=== PATIENT | female | born 1950 | race Caucasian/White ===

== ENCOUNTER → 2022-03-01 | Outpatient (REF) | payer MEDICAID ==
[2022-03-01 18:22] LABS: APPEARANCE, URINE MANUAL CLEAR (CLEAR); BILIRUBIN, URINE MANUAL NEGATIVE (NEGATIVE); BLOOD URINE MANUAL NEGATIVE (NEGATIVE); COLOR, URINE MANUAL YELLOW (YELLOW); GLUCOSE, URINE (UA) MANUAL NEGATIVE (NEGATIVE); KETONE, URINE MANUAL NEGATIVE (NEGATIVE); LEUKOCYTE ESTERASE, URINE MAN NEGATIVE (NEGATIVE); NITRITE, URINE MANUAL NEGATIVE (NEGATIVE); PROTEIN, URINE MANUAL NEGATIVE (NEGATIVE); UROBILINOGEN, URINE MANUAL NORMAL (NORMAL)
== END ==
LOC: M SMT 17:26
PROVIDERS: ATTEND Physician Assistant
DX: N39.41 Urge incontinence (principal)

== ENCOUNTER → 2023-11-08 | Outpatient (CLI) | payer MEDICARE, MEDICAID | LOC: M CARPUL 10:36 | PROVIDERS: ATTEND Nurse Practitioner Family | DX: J44.9 Chronic obstructive pulmonary disease, unspecified (principal) ==

== ENCOUNTER 2024-07-03 10:28 | Inpatient (IN) | payer MEDICARE, MEDICAID ==
[~2024-07-03] VITALS: Ht 162.6 cm; Wt 132.3 kg
[2024-07-03 11:06] LABS: BASO # 0.1 10^3/uL (0.0-0.2); EOS # 0.2 10^3/uL (0.0-0.5); HEMATOCRIT 28.5 % (36.0-47.0); HEMOGLOBIN 8.4 g/dl (12.0-15.5); LYMPH # 0.9 10^3/uL (1.5-5.0); LYMPH % 12.2 % (24.0-44.0); MEAN CORPUSCULAR HEMOGLOBIN 29.5 pg (27.0-33.0); MEAN CORPUSCULAR HGB CONC 29.5 g/dl (32.0-36.5); MONO # 0.8 10^3/uL (0.0-0.8); MONO % 10.5 % (2.0-8.0); NEUTROPHILS # 5.6 10^3/uL (1.5-8.5); NEUTROPHILS % 72.9 % (36.0-66.0); PLATELET COUNT, AUTOMATED 184 10^3/uL (150-450); RED BLOOD COUNT 2.85 10^6/uL (4.00-5.40); WHITE BLOOD COUNT 7.7 10^3/uL (4.0-10.0)
[2024-07-03 11:22] LABS: INR 1.02; PROTHROMBIN TIME 13.7 SECONDS (12.5-14.5)
[2024-07-03] MEDS: methylPREDNISolone 125MG 2ML VIAL IV ONE (11:26)
[2024-07-03 11:33] LABS: ALBUMIN 2.9 G/DL (3.2-5.2); ALKALINE PHOSPHATASE 320 U/L (35-104); ALT/SGPT 24 U/L (7.0-40); AST/SGOT 47 U/L (<34); BILIRUBIN,DIRECT 0.3 MG/DL (<0.4); BILIRUBIN,TOTAL 0.8 MG/DL (0.3-1.2); BLOOD UREA NITROGEN 17 MG/DL (9-23); CALCIUM LEVEL 7.9 MG/DL (8.3-10.6); CARBON DIOXIDE LEVEL 31 MMOL/L (20-31); CHLORIDE LEVEL 107 MMOL/L (98-107); CREATININE FOR GFR 0.67 MG/DL (0.55-1.30); GLOMERULAR FILTRATION RATE > 60.0 (>39); GLUCOSE, FASTING 97 MG/DL (74-106); POTASSIUM SERUM 4.2 MMOL/L (3.5-5.1); SODIUM LEVEL 146 MMOL/L (136-145); TOTAL PROTEIN 6.4 G/DL (5.7-8.2)
[2024-07-03 11:37] LABS: THYROID STIMULATING HORMONE 9.691 uIU/ML (0.55-4.78); THYROXINE (T4) 7.1 UG/DL (4.5-10.9)
[2024-07-03] MEDS: IPRATROPIUM 0.5MG/ALBUTEROL 2.5MG INH SOL UD 3ML (DUONEB) NEB PRN (12:07)
[2024-07-03] MEDS ORDERED: ISOVUE-370 76% 100ML VIAL As Ordered ONE (12:17)
[2024-07-03] MEDS: KETOROLAC 30 MG/ML 1ML VIAL IV ONE (13:10)
[2024-07-03 13:50] LABS: VENOUS BASE EXCESS 1.4 (-2.0-2.0); VENOUS HCO3 28.7 MMOL/L (23.0-27.0); VENOUS O2 SATURATION 91.3 % (60.0-80.0); VENOUS PARTIAL PRESSURE CO2 60.3 mmHg (38.0-50.0); VENOUS PARTIAL PRESSURE O2 66.1 mmHg (30.0-50.0); VENOUS PH 7.295 UNITS (7.330-7.430); VENOUS STANDARD HCO3 25.6 MMOL/L; VENOUS TOTAL CO2 30.5 MMOL/L (24.0-28.0)
[2024-07-03] MEDS ORDERED: LORA-1041 PO (14:18)
[2024-07-03] MEDS ORDERED: TRAM50TA2 PO (14:18)
[2024-07-03] MEDS ORDERED: SENN-52 PO (14:18)
[2024-07-03] MEDS ORDERED: MONT10TA97 PO (14:18)
[2024-07-03] MEDS ORDERED: LEVO200T4 PO (14:18)
[2024-07-03] MEDS ORDERED: IRBE300T25 PO (14:18)
[2024-07-03] MEDS ORDERED: CYMB60CA4 PO (14:18)
[2024-07-03] MEDS ORDERED: PANT-23 PO (14:18)
[2024-07-03] MEDS ORDERED: LYRI75CA PO (14:18)
[2024-07-03] MEDS ORDERED: ATOR1TAB19 PO (14:18)
[2024-07-03] MEDS ORDERED: FERR325T3 PO (14:18)
[2024-07-03] MEDS ORDERED: HOME MED LIST COMPLETE! XX SCH (14:20)
[2024-07-03] MEDS ORDERED: traMADol 50 MG TAB PO PRN (16:55)
[2024-07-03 17:59] LABS: IRON (FE) 46 UG/DL (50-170); PERCENT SATURATION 12.6 % (13.2-45.0); PHOSPHORUS LEVEL 1.9 MG/DL (2.4-5.1); TOTAL IRON BINDING CAPACITY 365 UG/DL (250-425)
[2024-07-03 18:01] LABS: FERRITIN 32.3 NG/ML (7.3-270.7)
[2024-07-03 18:02] LABS: FOLATE 6.42 NG/ML (>5.4); VITAMIN B12 LEVEL 238 PG/ML (211-911)
[2024-07-03] MEDS: FUROSEMIDE 40MG/4ML VIAL IV SCH (18:02)
[2024-07-03] MEDS: IPRATROPIUM 0.5MG/ALBUTEROL 2.5MG INH SOL UD 3ML (DUONEB) NEB SCH (20:42)
[2024-07-03] MEDS: SENOKOT S TAB PO SCH (21:44)
[2024-07-03] MEDS: PREGABALIN 75 MG CAP(LYRICA) PO SCH (21:45)
[2024-07-03 22:22] LABS: BLOOD UREA NITROGEN 17 MG/DL (9-23); CARBON DIOXIDE LEVEL 31 MMOL/L (20-31); CHLORIDE LEVEL 107 MMOL/L (98-107); CREATININE FOR GFR 0.88 MG/DL (0.55-1.30); GLOMERULAR FILTRATION RATE > 60.0 (>39); GLUCOSE, FASTING 123 MG/DL (74-106); POTASSIUM SERUM 4.3 MMOL/L (3.5-5.1); SODIUM LEVEL 146 MMOL/L (136-145)
[2024-07-04] MEDS: LEVOTHYROXINE 100MCG TABLET (0.1MG) PO SCH (05:52)
[2024-07-04] MEDS: traMADol 50 MG TAB PO PRN (05:56)
[2024-07-04 07:25] LABS: BASO % 0.2 % (0.0-1.0); HEMATOCRIT 27.1 % (36.0-47.0); HEMOGLOBIN 8.3 g/dl (12.0-15.5); LYMPH # 0.6 10^3/uL (1.5-5.0); LYMPH % 5.5 % (24.0-44.0); MEAN CORPUSCULAR HEMOGLOBIN 30.6 pg (27.0-33.0); MEAN CORPUSCULAR HGB CONC 30.6 g/dl (32.0-36.5); MONO # 1.2 10^3/uL (0.0-0.8); NEUTROPHILS % 82.9 % (36.0-66.0); PLATELET COUNT, AUTOMATED 207 10^3/uL (150-450); RED BLOOD COUNT 2.71 10^6/uL (4.00-5.40); WHITE BLOOD COUNT 10.8 10^3/uL (4.0-10.0)
[2024-07-04 07:55] LABS: BLOOD UREA NITROGEN 20 MG/DL (9-23); CALCIUM LEVEL 8.5 MG/DL (8.3-10.6); CARBON DIOXIDE LEVEL 31 MMOL/L (20-31); CHLORIDE LEVEL 105 MMOL/L (98-107); CREATININE FOR GFR 0.79 MG/DL (0.55-1.30); GLOMERULAR FILTRATION RATE > 60.0 (>39); GLUCOSE, FASTING 100 MG/DL (74-106); MAGNESIUM LEVEL 1.9 MG/DL (1.8-2.4); POTASSIUM SERUM 4.4 MMOL/L (3.5-5.1); SODIUM LEVEL 143 MMOL/L (136-145)
[2024-07-04] MEDS: ENOXAPARIN 40MG/0.4ML SYRINGE (J1650 PER 10MG) SC SCH (08:15)
[2024-07-04] MEDS: PANTOPRAZOLE 40MG TAB (PROTONIX) PO SCH (08:15)
[2024-07-04] MEDS: FERROUS SULFATE 325MG TAB PO SCH (08:16)
[2024-07-04] MEDS: DULoxetine 30MG CAPSULE (CYMBALTA) PO SCH (08:16)
[2024-07-04] MEDS: MONTELUKAST 10 MG TAB PO SCH (08:17)
[2024-07-04] MEDS: ATORVASTATIN 10 MG TAB PO SCH (08:18)
[2024-07-04] MEDS: LORATADINE 10 MG TAB PO SCH (08:21)
[2024-07-04] MEDS: IRBESARTAN 150MG TAB PO SCH (10:24)
[2024-07-04 11:00] VITALS: BP 106/96; TEMP 97.5; O2SAT 94
[2024-07-04] MEDS ORDERED: PILL CUTTER 1 EACH XX PRN (11:10)
[2024-07-04 11:16] LABS: PHOSPHORUS LEVEL 2.2 MG/DL (2.4-5.1)
[2024-07-04] MEDS: MAGNESIUM GLUCONATE 500 MG TAB PO SCH (12:08)
[2024-07-04] MEDS: POTASSIUM CHLORIDE 10MEQ SR TABLET PO SCH (12:09)
[2024-07-04 14:15] VITALS: BP 112/57; TEMP 98.1; O2SAT 94
[2024-07-04] MEDS: FERRIC CARBOXYMALTOSE INJ 750 MG, VIAL MATE ADAPTER 1 EACH in NS 100 ML IV ONE (14:55)
[2024-07-04 19:16] LABS: BLOOD UREA NITROGEN 24 MG/DL (9-23); CALCIUM LEVEL 8.1 MG/DL (8.3-10.6); CARBON DIOXIDE LEVEL 30 MMOL/L (20-31); CHLORIDE LEVEL 103 MMOL/L (98-107); CREATININE FOR GFR 0.91 MG/DL (0.55-1.30); GLOMERULAR FILTRATION RATE > 60.0 (>39); GLUCOSE, FASTING 140 MG/DL (74-106); MAGNESIUM LEVEL 1.8 MG/DL (1.8-2.4); POTASSIUM SERUM 4.5 MMOL/L (3.5-5.1); SODIUM LEVEL 141 MMOL/L (136-145)
[2024-07-04 19:42] VITALS: BP 150/71; TEMP 97.9; O2SAT 93
[2024-07-04 19:50] VITALS: O2SAT 94
[2024-07-05] MEDS: MAG SULF 1GM/100ML (MAG RUN) 1 GM in IV 1 EA IV SCH (00:37)
[2024-07-05 03:58] VITALS: BP 147/72; TEMP 97.7; O2SAT 92
[2024-07-05 04:02] VITALS: BP 147/72; TEMP 97.7; O2SAT 95
[2024-07-05 05:38] LABS: BASO % 0.3 % (0.0-1.0); EOS # 0.2 10^3/uL (0.0-0.5); EOS % 1.9 % (0.0-3.0); HEMATOCRIT 27.5 % (36.0-47.0); HEMOGLOBIN 8.3 g/dl (12.0-15.5); LYMPH # 1.5 10^3/uL (1.5-5.0); LYMPH % 13.1 % (24.0-44.0); MEAN CORPUSCULAR HEMOGLOBIN 30.3 pg (27.0-33.0); MEAN CORPUSCULAR HGB CONC 30.2 g/dl (32.0-36.5); MEAN CORPUSCULAR VOLUME 100.4 fl (80.0-96.0); MONO # 1.3 10^3/uL (0.0-0.8); MONO % 11.8 % (2.0-8.0); NEUTROPHILS # 8.1 10^3/uL (1.5-8.5); NEUTROPHILS % 72.3 % (36.0-66.0); PLATELET COUNT, AUTOMATED 211 10^3/uL (150-450); RED BLOOD COUNT 2.74 10^6/uL (4.00-5.40); WHITE BLOOD COUNT 11.2 10^3/uL (4.0-10.0)
[2024-07-05 06:08] LABS: BLOOD UREA NITROGEN 23 MG/DL (9-23); CALCIUM LEVEL 8.3 MG/DL (8.3-10.6); CARBON DIOXIDE LEVEL 34 MMOL/L (20-31); CHLORIDE LEVEL 101 MMOL/L (98-107); GLOMERULAR FILTRATION RATE > 60.0 (>39); GLUCOSE, FASTING 102 MG/DL (74-106); MAGNESIUM LEVEL 2.3 MG/DL (1.8-2.4); POTASSIUM SERUM 4.1 MMOL/L (3.5-5.1); SODIUM LEVEL 139 MMOL/L (136-145)
[2024-07-05] MEDS: predniSONE 20 MG TAB PO SCH (08:44)
[2024-07-05] MEDS: NYSTATIN 100,000 UNITS/GM TOPICAL PWD 15GM TOP SCH (09:00)
[2024-07-05] MEDS ORDERED: TRAM50TA2 PO (11:39)
[2024-07-05] MEDS ORDERED: IPRA0.00 NEB (11:39)
[2024-07-05] MEDS ORDERED: NYST10006 TOP (11:39)
[2024-07-05] MEDS ORDERED: METH40VIAL IV (11:39)
[2024-07-05] MEDS ORDERED: POTA-136 PO (11:39)
[2024-07-05] MEDS ORDERED: FURO80VL IV (11:39)
[2024-07-05] MEDS: methylPREDNISolone 40MG 1ML VIAL IV SCH (11:54)
[2024-07-05 14:00] VITALS: BP 176/88; TEMP 97.3; O2SAT 91
[2024-07-05] MEDS: FUROSEMIDE 40MG/4ML VIAL IV ONE (16:20)
[2024-07-05 18:51] LABS: BLOOD UREA NITROGEN 22 MG/DL (9-23); CARBON DIOXIDE LEVEL 32 MMOL/L (20-31); CHLORIDE LEVEL 101 MMOL/L (98-107); CREATININE FOR GFR 0.81 MG/DL (0.55-1.30); GLOMERULAR FILTRATION RATE > 60.0 (>39); GLUCOSE, FASTING 221 MG/DL (74-106); MAGNESIUM LEVEL 1.9 MG/DL (1.8-2.4); POTASSIUM SERUM 4.3 MMOL/L (3.5-5.1); SODIUM LEVEL 140 MMOL/L (136-145)
[2024-07-05 19:38] VITALS: BP 163/63; TEMP 97.9; O2SAT 95
[2024-07-05] MEDS: MIRALAX *UNIT DOSE* 17GM PACKET PO SCH (21:00)
[2024-07-05] MEDS: METAMUCIL (PSYLLIUM) PACKET PO SCH (21:00)
[2024-07-06 03:49] VITALS: BP 111/65; TEMP 97.3; O2SAT 94
[2024-07-06 05:46] LABS: BASO % 0.1 % (0.0-1.0); HEMATOCRIT 26.7 % (36.0-47.0); HEMOGLOBIN 8.3 g/dl (12.0-15.5); LYMPH # 0.6 10^3/uL (1.5-5.0); LYMPH % 5.8 % (24.0-44.0); MEAN CORPUSCULAR HEMOGLOBIN 30.6 pg (27.0-33.0); MEAN CORPUSCULAR HGB CONC 31.1 g/dl (32.0-36.5); MEAN CORPUSCULAR VOLUME 98.5 fl (80.0-96.0); MONO # 0.9 10^3/uL (0.0-0.8); MONO % 8.2 % (2.0-8.0); NEUTROPHILS # 9.2 10^3/uL (1.5-8.5); NEUTROPHILS % 84.9 % (36.0-66.0); PLATELET COUNT, AUTOMATED 219 10^3/uL (150-450); RED BLOOD COUNT 2.71 10^6/uL (4.00-5.40); WHITE BLOOD COUNT 10.8 10^3/uL (4.0-10.0)
[2024-07-06 06:13] LABS: BLOOD UREA NITROGEN 20 MG/DL (9-23); CALCIUM LEVEL 8.4 MG/DL (8.3-10.6); CARBON DIOXIDE LEVEL 34 MMOL/L (20-31); CHLORIDE LEVEL 102 MMOL/L (98-107); GLOMERULAR FILTRATION RATE > 60.0 (>39); GLUCOSE, FASTING 118 MG/DL (74-106); MAGNESIUM LEVEL 2.1 MG/DL (1.8-2.4); POTASSIUM SERUM 4.3 MMOL/L (3.5-5.1); SODIUM LEVEL 143 MMOL/L (136-145)
[2024-07-06] MEDS: BISACODYL 10MG SUPP PR ONE (10:40)
[2024-07-06 12:15] VITALS: BP 127/70; TEMP 98.1; O2SAT 90
[2024-07-07 04:00] VITALS: BP 155/86; TEMP 97.5; O2SAT 96
[2024-07-07] MEDS: predniSONE 20 MG TAB PO SCH (08:40)
[2024-07-07] MEDS: TORSEMIDE 20 MG TAB PO SCH (08:41)
[2024-07-08 05:32] VITALS: BP 130/66; TEMP 97.7; O2SAT 97
[2024-07-08] MEDS: FERROUS SULFATE 325MG TAB PO SCH (14:55)
[2024-07-08] MEDS: ACETAMINOPHEN 325 MG TAB PO PRN (14:55)
[2024-07-09 03:29] VITALS: BP 128/66; TEMP 97.7; O2SAT 97
[2024-07-09 07:39] VITALS: BP 152/77
[2024-07-10 04:26] VITALS: BP 106/77; TEMP 97.5; O2SAT 96
[2024-07-10 04:37] VITALS: O2SAT 96
[2024-07-10 04:38] VITALS: O2SAT 97
[2024-07-11 04:00] VITALS: BP 128/66; TEMP 97.5; O2SAT 96
[2024-07-11 09:12] VITALS: BP 101/73
[2024-07-12 04:00] VITALS: BP 138/71; TEMP 97.7; O2SAT 97
[2024-07-12 08:50] VITALS: BP 105/56
[2024-07-12] MEDS ORDERED: TORS20TA2 PO (11:15)
[2024-08-06] MEDS ORDERED: SECUKINUMAB SQ SCH (09:00)
== END 2024-07-12 14:08 | DRG 291 ==
LOC: EDBD 10:28 → M ED 10:28 → M ED INP 16:17 → M MS5PR 07-04 11:00 → M MSPAV 07-04 13:55
PROVIDERS: ADMIT Student in an Organized Health Care Education/Training Program; ATTEND Internal Medicine
PROC: B246ZZZ Ultrasonography of Right and Left Heart (ICD-10-PCS; principal; 2024-07-04)
DX: I11.0 Hypertensive heart disease with heart failure (principal); I50.33 Acute on chronic diastolic (congestive) heart failure; E87.20 Acidosis, unspecified; J96.11 Chronic respiratory failure with hypoxia; J44.9 Chronic obstructive pulmonary disease, unspecified; E78.5 Hyperlipidemia, unspecified; F32.A Depression, unspecified; K21.9 Gastro-esophageal reflux disease without esophagitis; E03.9 Hypothyroidism, unspecified; L40.9 Psoriasis, unspecified; D50.9 Iron deficiency anemia, unspecified; M79.7 Fibromyalgia; K59.00 Constipation, unspecified; N39.41 Urge incontinence; F17.210 Nicotine dependence, cigarettes, uncomplicated; S42.202D Unspecified fracture of upper end of left humerus, subsequent encounter for fracture with routine healing; Z79.890 Hormone replacement therapy; Z79.899 Other long term (current) drug therapy; Z91.041 Radiographic dye allergy status; Z88.5 Allergy status to narcotic agent; Z88.8 Allergy status to other drugs, medicaments and biological substances; Z99.81 Dependence on supplemental oxygen

== ENCOUNTER → 2024-08-01 | Outpatient (CLI) | payer MEDICARE, MEDICAID ==
[~2024-08-01] MED LIST: ATOR1TAB19 PO; CYMB60CA4 PO; FERR325T3 PO; FURO80VL IV; IPRA0.00 NEB; IRBE300T25 PO; LEVO200T4 PO; LORA-1041 PO; LYRI75CA PO; METH40VIAL IV; MONT10TA97 PO; NYST10006 TOP; PANT-23 PO; POTA-136 PO; SENN-52 PO; TORS20TA2 PO; TRAM50TA2 PO
== END ==
LOC: M SOG 07:55
PROVIDERS: ATTEND Orthopaedic Surgery
DX: M25.512 Pain in left shoulder (principal)

== ENCOUNTER → 2024-09-12 | Outpatient (CLI) | payer MEDICARE, MEDICAID | LOC: M SOG 06:54 | PROVIDERS: ATTEND Orthopaedic Surgery | DX: S42.212A Unspecified displaced fracture of surgical neck of left humerus, initial encounter for closed fracture (principal) ==

== ENCOUNTER → 2024-11-14 | Outpatient (REF) | payer MEDICARE, MEDICAID ==
[2024-11-14 10:31] LABS: PLATELET COUNT, AUTOMATED 196 10^3/uL (150-450)
[2024-11-14 11:04] LABS: CALCIUM LEVEL 9.0 MG/DL (8.3-10.6); CARBON DIOXIDE LEVEL 32.0 MMOL/L (20-31); CHLORIDE LEVEL 101.0 MMOL/L (98-107); CREATININE FOR GFR 0.78 MG/DL (0.55-1.30); GLOMERULAR FILTRATION RATE 79.2 (>39); POTASSIUM SERUM 4.0 MMOL/L (3.5-5.1); SODIUM LEVEL 144.0 MMOL/L (136-145)
== END ==
PROVIDERS: ATTEND Physician Assistant
DX: E03.9 Hypothyroidism, unspecified (principal)

== ENCOUNTER → 2024-12-28 | Outpatient (REF) | payer MEDICARE, MEDICAID ==
[2024-12-28 10:16] LABS: PLATELET COUNT, AUTOMATED 255 10^3/uL (150-450)
[2024-12-28 10:35] LABS: CALCIUM LEVEL 8.6 MG/DL (8.3-10.6); CARBON DIOXIDE LEVEL 36.0 MMOL/L (20-31); CHLORIDE LEVEL 102.0 MMOL/L (98-107); CREATININE FOR GFR 0.71 MG/DL (0.55-1.30); GLOMERULAR FILTRATION RATE 88.6 (>39); POTASSIUM SERUM 4.4 MMOL/L (3.5-5.1); SODIUM LEVEL 143.0 MMOL/L (136-145)
== END ==
PROVIDERS: ATTEND Internal Medicine
DX: I50.9 Heart failure, unspecified (principal)

== ENCOUNTER → 2025-01-04 | Outpatient (REF) | payer MEDICARE, MEDICAID ==
[2025-01-04 12:35] LABS: CALCIUM LEVEL 8.8 MG/DL (8.3-10.6); CARBON DIOXIDE LEVEL 34.0 MMOL/L (20-31); CHLORIDE LEVEL 100.0 MMOL/L (98-107); CREATININE FOR GFR 0.8 MG/DL (0.55-1.30); GLOMERULAR FILTRATION RATE 76.8 (>39); POTASSIUM SERUM 3.7 MMOL/L (3.5-5.1); SODIUM LEVEL 143.0 MMOL/L (136-145)
== END ==
PROVIDERS: ATTEND Internal Medicine
DX: I50.9 Heart failure, unspecified (principal)

== ENCOUNTER → 2025-01-18 | Outpatient (REF) | payer MEDICARE, MEDICAID ==
[2025-01-18 13:04] LABS: CALCIUM LEVEL 8.4 MG/DL (8.3-10.6); CARBON DIOXIDE LEVEL 36.0 MMOL/L (20-31); CHLORIDE LEVEL 101.0 MMOL/L (98-107); CREATININE FOR GFR 0.75 MG/DL (0.55-1.30); GLOMERULAR FILTRATION RATE 83.0 (>39); POTASSIUM SERUM 4.0 MMOL/L (3.5-5.1); SODIUM LEVEL 143.0 MMOL/L (136-145)
== END ==
PROVIDERS: ATTEND Internal Medicine
DX: I50.9 Heart failure, unspecified (principal)

== ENCOUNTER → 2025-01-25 | Outpatient (REF) | payer MEDICARE, MEDICAID | PROVIDERS: ATTEND Nurse Practitioner Family | DX: R63.5 Abnormal weight gain (principal); Z53.8 Procedure and treatment not carried out for other reasons ==

== ENCOUNTER → 2025-01-25 | Outpatient (REF) | payer MEDICARE, MEDICAID | PROVIDERS: ATTEND Physician Assistant | DX: I50.9 Heart failure, unspecified (principal) ==

== ENCOUNTER → 2025-01-28 | Outpatient (REF) | payer MEDICARE, MEDICAID ==
[2025-01-28 11:51] LABS: ALT/SGPT 14.0 U/L (7.0-40); AST/SGOT 26.0 U/L (<34); CALCIUM LEVEL 8.1 MG/DL (8.3-10.6); CARBON DIOXIDE LEVEL 35.0 MMOL/L (20-31); CHLORIDE LEVEL 101.0 MMOL/L (98-107); CREATININE FOR GFR 0.85 MG/DL (0.55-1.30); GLOMERULAR FILTRATION RATE 71.4 (>39); POTASSIUM SERUM 3.9 MMOL/L (3.5-5.1); SODIUM LEVEL 142.0 MMOL/L (136-145)
== END ==
PROVIDERS: ATTEND Nurse Practitioner Family
DX: R63.8 Other symptoms and signs concerning food and fluid intake (principal); I50.9 Heart failure, unspecified

== ENCOUNTER → 2025-02-01 | Outpatient (REF) | payer MEDICARE, MEDICAID ==
[2025-02-01 10:44] LABS: ALT/SGPT 16.0 U/L (7.0-40); AST/SGOT 32.0 U/L (<34); CALCIUM LEVEL 8.3 MG/DL (8.3-10.6); CARBON DIOXIDE LEVEL 32.0 MMOL/L (20-31); CHLORIDE LEVEL 93.0 MMOL/L (98-107); CREATININE FOR GFR 1.2 MG/DL (0.55-1.30); GLOMERULAR FILTRATION RATE 47.2 (>39); POTASSIUM SERUM 3.5 MMOL/L (3.5-5.1); SODIUM LEVEL 136.0 MMOL/L (136-145)
== END ==
PROVIDERS: ATTEND Nurse Practitioner Family
DX: R63.5 Abnormal weight gain (principal)

== ENCOUNTER → 2025-02-08 | Outpatient (REF) | payer MEDICARE, MEDICAID ==
[2025-02-08 11:20] LABS: PLATELET COUNT, AUTOMATED 216 10^3/uL (150-450)
[2025-02-08 11:47] LABS: CALCIUM LEVEL 8.4 MG/DL (8.3-10.6); CARBON DIOXIDE LEVEL 38.0 MMOL/L (20-31); CHLORIDE LEVEL 97.0 MMOL/L (98-107); CREATININE FOR GFR 0.92 MG/DL (0.55-1.30); GLOMERULAR FILTRATION RATE 64.9 (>39); POTASSIUM SERUM 4.1 MMOL/L (3.5-5.1); SODIUM LEVEL 141.0 MMOL/L (136-145)
== END ==
PROVIDERS: ATTEND Nurse Practitioner Family
DX: I50.9 Heart failure, unspecified (principal)

== ENCOUNTER → 2025-02-11 | Outpatient (REF) | payer MEDICARE, MEDICAID | PROVIDERS: ATTEND Nurse Practitioner Family | DX: E78.5 Hyperlipidemia, unspecified (principal); Z53.8 Procedure and treatment not carried out for other reasons ==

== ENCOUNTER → 2025-02-15 | Outpatient (REF) | payer MEDICARE, MEDICAID ==
[2025-02-15 11:28] LABS: CALCIUM LEVEL 8.6 MG/DL (8.3-10.6); CARBON DIOXIDE LEVEL 38.0 MMOL/L (20-31); CHLORIDE LEVEL 96.0 MMOL/L (98-107); CREATININE FOR GFR 1.2 MG/DL (0.55-1.30); GLOMERULAR FILTRATION RATE 47.2 (>39); POTASSIUM SERUM 3.3 MMOL/L (3.5-5.1); SODIUM LEVEL 145.0 MMOL/L (136-145)
== END ==
PROVIDERS: ATTEND Nurse Practitioner Family
DX: I50.9 Heart failure, unspecified (principal)

== ENCOUNTER 2025-02-22 15:08 | Inpatient (IN) | payer MEDICARE, MEDICAID ==
[~2025-02-22] VITALS: Ht 162.6 cm; Wt 136.0 kg
[~2025-02-22 15:08] MED LIST changes: -ACET-683 PO; -ACET-907 PO; -CETI-24 PO; -DULO60CA35 PO; -EMOL454C2 TOP; -GABA-1171 PO; -IBUP-1114 PO; -LOSA50TA28 PO; -MED REC COMMENT; -METO25TA PO; -OLOP5DRO17 OU; -ORAJ20GE TEETH; -POLY510P14 PO; -POTA10TA67 PO; -SYNT175T2 PO; -TRIPOIN9 TOP
[2025-02-22 17:37] LABS: BASO # 0.1 10^3/uL (0.0-0.2); BASO % 0.9 % (0.0-1.0); EOS # 0.2 10^3/uL (0.0-0.5); EOS % 3.1 % (0.0-3.0); LYMPH # 1.0 10^3/uL (1.5-5.0); LYMPH % 16.4 % (24.0-44.0); MONO # 0.8 10^3/uL (0.0-0.8); MONO % 14.0 % (2.0-8.0); NEUTROPHILS # 3.8 10^3/uL (1.5-8.5); NEUTROPHILS % 64.9 % (36.0-66.0); PLATELET COUNT, AUTOMATED 241 10^3/uL (150-450)
[2025-02-22 17:56] LABS: INR 1.12
[2025-02-22] MEDS: MORPHINE 4 MG/ML 1 ML VIAL IV PRN (18:16)
[2025-02-22 18:17] LABS: ALT/SGPT 19 U/L (7.0-40); AST/SGOT 94 U/L (<34); CALCIUM LEVEL 8.3 MG/DL (8.3-10.6); CARBON DIOXIDE LEVEL 32 MMOL/L (20-31); CHLORIDE LEVEL 95 MMOL/L (98-107); CREATININE FOR GFR 1.22 MG/DL (0.55-1.30); GLOMERULAR FILTRATION RATE 46.3 (>39); POTASSIUM SERUM 5.4 MMOL/L (3.5-5.1); SODIUM LEVEL 139 MMOL/L (136-145)
[2025-02-22 19:29] LABS: IRON (FE) < 5 UG/DL (50-170); PERCENT SATURATION 1.2 % (13.2-45.0)
[2025-02-22 20:18] VITALS: BP 115/56; TEMP 96.8; O2SAT 98
[2025-02-22 20:39] VITALS: BP 119/59; TEMP 96.9; O2SAT 99
[2025-02-22 21:24] VITALS: BP 133/71; TEMP 97.4; O2SAT 100
[2025-02-22 22:08] VITALS: BP 122/68; TEMP 97.4; O2SAT 99
[2025-02-22] MEDS ORDERED: CETI-24 PO (22:36)
[2025-02-22] MEDS ORDERED: LOSA50TA28 PO (22:36)
[2025-02-22] MEDS ORDERED: DULO60CA35 PO (22:36)
[2025-02-22] MEDS ORDERED: EMOL454C2 TOP (22:36)
[2025-02-22] MEDS ORDERED: GABA-1171 PO (22:39)
[2025-02-22] MEDS ORDERED: POLY510P14 PO (22:39)
[2025-02-22] MEDS ORDERED: METO25TA PO (22:39)
[2025-02-22] MEDS ORDERED: ORAJ20GE TEETH ×2 (22:45→23:16)
[2025-02-22] MEDS ORDERED: IBUP-1114 PO (22:45)
[2025-02-22] MEDS ORDERED: ACET-907 PO (22:45)
[2025-02-22] MEDS ORDERED: MED REC IN PROGRESS XX SCH (22:50)
[2025-02-22] MEDS ORDERED: POTA10TA67 PO (23:07)
[2025-02-22] MEDS ORDERED: TRIPOIN9 TOP (23:13)
[2025-02-22] MEDS ORDERED: TORS20TA2 PO (23:13)
[2025-02-22] MEDS ORDERED: SYNT175T2 PO (23:13)
[2025-02-22] MEDS ORDERED: OLOP5DRO17 OU (23:13)
[2025-02-22] MEDS ORDERED: MED REC COMMENT (23:26)
[2025-02-22] MEDS ORDERED: HOME MED LIST COMPLETE! XX SCH (23:30)
[2025-02-22] MEDS ORDERED: ACET-683 PO (23:57)
[2025-02-23] VITALS (19 sets, daily range): BP systolic 94–166; BP diastolic 49–98; TEMP 97–98.5; O2SAT 91–100
[2025-02-23] MEDS: FERRIC CARBOXYMALTOSE INJ 750 MG, VIAL MATE ADAPTER 1 EACH in NS 100 ML IV ONE (01:12)
[2025-02-23] MEDS: PANTOPRAZOLE 40MG VIAL IV SCH (01:12)
[2025-02-23] MEDS: FUROSEMIDE 20 MG/2 ML VIAL IV ONE (05:27)
[2025-02-23] MEDS: LEVOTHYROXINE 25 MCG TABLET (0.025MG) PO SCH (09:15)
[2025-02-23] MEDS: LEVOTHYROXINE 150 MCG TABLET (0.15 MG) PO SCH (09:15)
[2025-02-23] MEDS: GABAPENTIN 100 MG CAP PO SCH ×2 (09:16→16:05)
[2025-02-23] MEDS: SENNOSIDES/DOCUSATE SODIUM 8.6 MG/50MG TAB PO SCH (09:16)
[2025-02-23] MEDS: CETIRIZINE 10 MG TAB PO SCH (09:16)
[2025-02-23] MEDS: OLOPATADINE 0.1% OPHTH SOL 5ML OU SCH (09:16)
[2025-02-23] MEDS: FUROSEMIDE 40 MG/4 ML VIAL IV ONE (09:23)
[2025-02-23] MEDS: IPRATROPIUM 0.5 MG/ALBUTEROL 2.5 MG INH SOL UD 3 ML NEB SCH (10:45)
[2025-02-23 11:42] LABS: PLATELET COUNT, AUTOMATED 248 10^3/uL (150-450)
[2025-02-23 12:04] LABS: ALT/SGPT 13.0 U/L (7.0-40); AST/SGOT 29.0 U/L (<34); CALCIUM LEVEL 8.6 MG/DL (8.3-10.6); CARBON DIOXIDE LEVEL 36.0 MMOL/L (20-31); CHLORIDE LEVEL 95.0 MMOL/L (98-107); CREATININE FOR GFR 1.17 MG/DL (0.55-1.30); GLOMERULAR FILTRATION RATE 48.7 (>39); POTASSIUM SERUM 3.4 MMOL/L (3.5-5.1); SODIUM LEVEL 140.0 MMOL/L (136-145)
[2025-02-23] MEDS: POTASSIUM CHLORIDE 10MEQ SR TABLET PO SCH (12:25)
[2025-02-23] MEDS: ACETAMINOPHEN 500 MG TAB PO SCH (16:05)
[2025-02-23] MEDS: FUROSEMIDE 40 MG/4 ML VIAL IV SCH (16:06)
[2025-02-23 18:14] LABS: PLATELET COUNT, AUTOMATED 245 10^3/uL (150-450)
[2025-02-24] VITALS (8 sets, daily range): BP systolic 120–161; BP diastolic 59–83; TEMP 97–97.7; O2SAT 94–100
[2025-02-24] MEDS: GABAPENTIN 100 MG CAP PO ONE (00:47)
[2025-02-24 06:25] LABS: BASO # 0.1 10^3/uL (0.0-0.2); BASO % 1.2 % (0.0-1.0); EOS # 0.3 10^3/uL (0.0-0.5); EOS % 5.0 % (0.0-3.0); LYMPH # 1.2 10^3/uL (1.5-5.0); LYMPH % 18.0 % (24.0-44.0); MONO # 1.2 10^3/uL (0.0-0.8); MONO % 17.5 % (2.0-8.0); NEUTROPHILS # 3.9 10^3/uL (1.5-8.5); NEUTROPHILS % 57.4 % (36.0-66.0); PLATELET COUNT, AUTOMATED 220 10^3/uL (150-450)
[2025-02-24 06:59] LABS: CALCIUM LEVEL 8.4 MG/DL (8.3-10.6); CARBON DIOXIDE LEVEL 40.0 MMOL/L (20-31); CHLORIDE LEVEL 97.0 MMOL/L (98-107); CREATININE FOR GFR 1.18 MG/DL (0.55-1.30); GLOMERULAR FILTRATION RATE 48.2 (>39); POTASSIUM SERUM 3.5 MMOL/L (3.5-5.1); SODIUM LEVEL 143.0 MMOL/L (136-145)
[2025-02-24] MEDS: BUDESONIDE 0.5 MG/2 ML INHALATION SUSPENSION NEB SCH (09:42)
[2025-02-24] MEDS: FUROSEMIDE 100 MG/10 ML VIAL IV SCH (15:18)
[2025-02-24] MEDS: POLYETHYLENE GLYCOL 238 GM BOTTLE PO ONE (15:19)
[2025-02-25] MEDS: MAGNESIUM CITRATE 300 ML BTL PO ONE ×2 (01:30→12:36)
[2025-02-25 03:37] VITALS: BP 126/55; TEMP 98; O2SAT 99
[2025-02-25 05:52] LABS: BASO # 0.1 10^3/uL (0.0-0.2); BASO % 1.0 % (0.0-1.0); EOS # 0.3 10^3/uL (0.0-0.5); EOS % 3.8 % (0.0-3.0); LYMPH # 1.1 10^3/uL (1.5-5.0); LYMPH % 12.7 % (24.0-44.0); MONO # 1.4 10^3/uL (0.0-0.8); MONO % 15.9 % (2.0-8.0); NEUTROPHILS # 5.9 10^3/uL (1.5-8.5); NEUTROPHILS % 65.9 % (36.0-66.0); PLATELET COUNT, AUTOMATED 248 10^3/uL (150-450)
[2025-02-25 12:12] VITALS: BP 105/52; TEMP 97.6; O2SAT 97
[2025-02-25 15:28] VITALS: BP 112/71; TEMP 97.5; O2SAT 98
[2025-02-25] MEDS ORDERED: LIDOCAINE 2% 100 MG/5 ML SDV (FOR ANES.) As Ordered ONE (16:17)
[2025-02-25] MEDS ORDERED: ONDANSETRON 4MG/2ML VIAL As Ordered ONE (16:17)
[2025-02-25] MEDS: CETACAINE SPRAY 5 GM As Ordered ONE (16:50)
[2025-02-25] MEDS ORDERED: PHENYLephrine 500MCG 5ML (100MCG/ML) SYRINGE As Ordered ONE (17:14)
[2025-02-25 18:15] VITALS: BP 125/59; TEMP 97.6; O2SAT 94
[2025-02-25] MEDS: FUROSEMIDE 100 MG/10 ML VIAL IV SCH (18:22)
[2025-02-25 19:32] VITALS: BP 136/63; TEMP 97.3; O2SAT 93
[2025-02-26] VITALS (10 sets, daily range): BP systolic 108–144; BP diastolic 52–60; TEMP 97–99; O2SAT 94–98
[2025-02-26] MEDS: SUCRALFATE 1 GM TAB PO SCH (00:19)
[2025-02-26 05:23] LABS: BASO # 0.1 10^3/uL (0.0-0.2); BASO % 1.2 % (0.0-1.0); EOS # 0.3 10^3/uL (0.0-0.5); EOS % 3.9 % (0.0-3.0); LYMPH # 1.4 10^3/uL (1.5-5.0); LYMPH % 18.0 % (24.0-44.0); MONO # 1.2 10^3/uL (0.0-0.8); MONO % 15.5 % (2.0-8.0); NEUTROPHILS # 4.6 10^3/uL (1.5-8.5); NEUTROPHILS % 60.7 % (36.0-66.0); PLATELET COUNT, AUTOMATED 235 10^3/uL (150-450)
[2025-02-26 05:48] LABS: CALCIUM LEVEL 9.7 MG/DL (8.3-10.6); CARBON DIOXIDE LEVEL > 40.0 MMOL/L (20-31); CHLORIDE LEVEL 91 MMOL/L (98-107); CREATININE FOR GFR 1.02 MG/DL (0.55-1.30); GLOMERULAR FILTRATION RATE 57.4 (>39); POTASSIUM SERUM 3.5 MMOL/L (3.5-5.1); SODIUM LEVEL 140 MMOL/L (136-145)
[2025-02-26] MEDS: NYSTATIN 100,000 UNITS/GM TOPICAL PWD 15 GM TOP SCH (21:19)
[2025-02-27 04:00] VITALS: TEMP 97.7; O2SAT 98
[2025-02-27 05:56] LABS: BASO # 0.1 10^3/uL (0.0-0.2); BASO % 1.2 % (0.0-1.0); EOS # 0.4 10^3/uL (0.0-0.5); EOS % 4.7 % (0.0-3.0); LYMPH # 1.3 10^3/uL (1.5-5.0); LYMPH % 15.6 % (24.0-44.0); MONO # 1.2 10^3/uL (0.0-0.8); MONO % 14.8 % (2.0-8.0); NEUTROPHILS # 5.1 10^3/uL (1.5-8.5); NEUTROPHILS % 62.7 % (36.0-66.0); PLATELET COUNT, AUTOMATED 258 10^3/uL (150-450)
[2025-02-27 06:25] LABS: CALCIUM LEVEL 9.4 MG/DL (8.3-10.6); CARBON DIOXIDE LEVEL > 40.0 MMOL/L (20-31); CHLORIDE LEVEL 86 MMOL/L (98-107); CREATININE FOR GFR 1.03 MG/DL (0.55-1.30); GLOMERULAR FILTRATION RATE 56.7 (>39); POTASSIUM SERUM 3.2 MMOL/L (3.5-5.1); SODIUM LEVEL 139 MMOL/L (136-145)
[2025-02-27] MEDS: TORSEMIDE 20 MG TAB PO SCH (08:47)
[2025-02-27] MEDS: POTASSIUM CHLORIDE 10MEQ SR TABLET PO ONE (09:10)
[2025-02-27 12:00] VITALS: BP 114/54; TEMP 97.9; O2SAT 94
[2025-02-27 19:31] VITALS: O2SAT 92
[2025-02-27 19:52] VITALS: BP 144/67; TEMP 98.2; O2SAT 95
[2025-02-28 04:40] VITALS: BP 135/67; TEMP 98.1; O2SAT 95
[2025-02-28 06:39] LABS: BASO # 0.1 10^3/uL (0.0-0.2); BASO % 1.3 % (0.0-1.0); EOS # 0.5 10^3/uL (0.0-0.5); EOS % 6.1 % (0.0-3.0); LYMPH # 1.2 10^3/uL (1.5-5.0); LYMPH % 15.5 % (24.0-44.0); MONO # 1.2 10^3/uL (0.0-0.8); MONO % 14.5 % (2.0-8.0); NEUTROPHILS # 4.9 10^3/uL (1.5-8.5); NEUTROPHILS % 61.2 % (36.0-66.0); PLATELET COUNT, AUTOMATED 275 10^3/uL (150-450)
[2025-02-28 07:11] LABS: CALCIUM LEVEL 9.1 MG/DL (8.3-10.6); CARBON DIOXIDE LEVEL > 40.0 MMOL/L (20-31); CHLORIDE LEVEL 80 MMOL/L (98-107); CREATININE FOR GFR 1.10 MG/DL (0.55-1.30); GLOMERULAR FILTRATION RATE 52.4 (>39); POTASSIUM SERUM 3.1 MMOL/L (3.5-5.1); SODIUM LEVEL 135 MMOL/L (136-145)
[2025-02-28] MEDS: POTASSIUM CHLORIDE 10MEQ SR TABLET PO SCH (09:02)
[2025-02-28 09:07] VITALS: BP 133/66
[2025-02-28] MEDS ORDERED: SUCR1TA PO (13:31)
[2025-02-28] MEDS ORDERED: METO25TA PO (13:31)
[2025-02-28] MEDS ORDERED: POTA-136 PO (13:31)
[2025-02-28] MEDS ORDERED: PANT-23 PO (13:31)
[2025-02-28] MEDS ORDERED: NYST10006 TOP (13:31)
[2025-02-28] MEDS ORDERED: TORS20TA2 PO (13:31)
[2025-02-28] MEDS ORDERED: GABA-1171 PO (13:31)
== END 2025-02-28 14:28 | DRG 377 ==
LOC: M ED 15:08 → M ED INP 15:09 → M PCU 02-23 00:16 → OBSVTOIN 02-23 10:11 → M PCU 02-26 08:30 → M MSPAV 02-26 17:53
PROVIDERS: ADMIT Student in an Organized Health Care Education/Training Program; ATTEND Internal Medicine Nephrology
PROC: 30233N1 Transfusion of Nonautologous Red Blood Cells into Peripheral Vein, Percutaneous Approach (ICD-10-PCS; 2025-02-23)
PROC: 0DBG8ZZ Excision of Left Large Intestine, Via Natural or Artificial Opening Endoscopic (ICD-10-PCS; 2025-02-25)
PROC: 0DBF8ZZ Excision of Right Large Intestine, Via Natural or Artificial Opening Endoscopic (ICD-10-PCS; 2025-02-25)
PROC: 0DJ08ZZ Inspection of Upper Intestinal Tract, Via Natural or Artificial Opening Endoscopic (ICD-10-PCS; principal; 2025-02-25 09:16)
DX: K92.2 Gastrointestinal hemorrhage, unspecified (principal); I50.33 Acute on chronic diastolic (congestive) heart failure; Z68.43 Body mass index [BMI] 50.0-59.9, adult; D62 Acute posthemorrhagic anemia; D50.9 Iron deficiency anemia, unspecified; J44.9 Chronic obstructive pulmonary disease, unspecified; E78.5 Hyperlipidemia, unspecified; K21.9 Gastro-esophageal reflux disease without esophagitis; E03.9 Hypothyroidism, unspecified; L40.9 Psoriasis, unspecified; M79.7 Fibromyalgia; N39.41 Urge incontinence; F32.A Depression, unspecified; K57.30 Diverticulosis of large intestine without perforation or abscess without bleeding; I11.0 Hypertensive heart disease with heart failure; I87.8 Other specified disorders of veins; Z66 Do not resuscitate; H40.9 Unspecified glaucoma; I89.0 Lymphedema, not elsewhere classified; M54.50 Low back pain, unspecified; F17.210 Nicotine dependence, cigarettes, uncomplicated; E87.5 Hyperkalemia; K31.89 Other diseases of stomach and duodenum; E66.01 Morbid (severe) obesity due to excess calories; R60.0 Localized edema; Z99.81 Dependence on supplemental oxygen; Z88.5 Allergy status to narcotic agent; Z88.8 Allergy status to other drugs, medicaments and biological substances; Z91.041 Radiographic dye allergy status; Z79.891 Long term (current) use of opiate analgesic; Z79.899 Other long term (current) drug therapy; Z79.890 Hormone replacement therapy

== ENCOUNTER → 2025-02-22 | Outpatient (REF) | payer MEDICARE, MEDICAID ==
[~2025-02-22] MED LIST changes: +ACET-683 PO; +ACET-907 PO; +CETI-24 PO; +DULO60CA35 PO; +EMOL454C2 TOP; +GABA-1171 PO; +IBUP-1114 PO; +LOSA50TA28 PO; +MED REC COMMENT; +METO25TA PO; +OLOP5DRO17 OU; +ORAJ20GE TEETH; +POLY510P14 PO; +POTA10TA67 PO; +SYNT175T2 PO; +TRIPOIN9 TOP
== END ==
PROVIDERS: ATTEND Physician Assistant
DX: Z53.8 Procedure and treatment not carried out for other reasons (principal)

== ENCOUNTER → 2025-02-25 | Outpatient (REF) | payer MEDICARE, MEDICAID ==
[~2025-02-25] MED LIST changes: +ACET-683 PO; +ACET-907 PO; +CETI-24 PO; +DULO60CA35 PO; +EMOL454C2 TOP; +GABA-1171 PO; +IBUP-1114 PO; +LOSA50TA28 PO; +MED REC COMMENT; +METO25TA PO; +OLOP5DRO17 OU; +ORAJ20GE TEETH; +POLY510P14 PO; +POTA10TA67 PO; +SYNT175T2 PO; +TRIPOIN9 TOP
== END ==
PROVIDERS: ATTEND Nurse Practitioner Family
DX: I50.9 Heart failure, unspecified (principal); Z53.8 Procedure and treatment not carried out for other reasons

== ENCOUNTER → 2025-03-01 | Outpatient (REF) | payer MEDICARE, MEDICAID ==
[~2025-03-01] MED LIST changes: +SUCR1TA PO
== END ==
PROVIDERS: ATTEND Internal Medicine
DX: J44.9 Chronic obstructive pulmonary disease, unspecified (principal); R09.02 Hypoxemia; E87.6 Hypokalemia

== ENCOUNTER → 2025-03-01 | Outpatient (REF) | payer MEDICARE, MEDICAID ==
[2025-03-01 13:41] LABS: PLATELET COUNT, AUTOMATED 290 10^3/uL (150-450)
[2025-03-01 14:19] LABS: CALCIUM LEVEL 9.5 MG/DL (8.3-10.6); CARBON DIOXIDE LEVEL > 40.0 MMOL/L (20-31); CHLORIDE LEVEL 76 MMOL/L (98-107); CREATININE FOR GFR 1.22 MG/DL (0.55-1.30); GLOMERULAR FILTRATION RATE 46.3 (>39); POTASSIUM SERUM 3.3 MMOL/L (3.5-5.1); SODIUM LEVEL 134 MMOL/L (136-145)
== END ==
PROVIDERS: ATTEND Nurse Practitioner Family
DX: E87.6 Hypokalemia (principal)

== ENCOUNTER → 2025-03-04 | Outpatient (REF) | payer MEDICARE, MEDICAID ==
[2025-03-04 12:24] LABS: BASO # 0.1 10^3/uL (0.0-0.2); BASO % 0.5 % (0.0-1.0); EOS # 0.2 10^3/uL (0.0-0.5); EOS % 2.0 % (0.0-3.0); LYMPH # 1.5 10^3/uL (1.5-5.0); LYMPH % 16.3 % (24.0-44.0); MONO # 0.9 10^3/uL (0.0-0.8); MONO % 10.0 % (2.0-8.0); NEUTROPHILS # 6.6 10^3/uL (1.5-8.5); NEUTROPHILS % 70.8 % (36.0-66.0); PLATELET COUNT, AUTOMATED 246 10^3/uL (150-450)
[2025-03-04 13:18] LABS: CALCIUM LEVEL 9.1 MG/DL (8.3-10.6); CARBON DIOXIDE LEVEL > 40.0 MMOL/L (20-31); CHLORIDE LEVEL 79 MMOL/L (98-107); CREATININE FOR GFR 1.16 MG/DL (0.55-1.30); GLOMERULAR FILTRATION RATE 49.2 (>39); POTASSIUM SERUM 3.0 MMOL/L (3.5-5.1); SODIUM LEVEL 132 MMOL/L (136-145)
== END ==
PROVIDERS: ATTEND Nurse Practitioner Family
DX: D64.9 Anemia, unspecified (principal)

== ENCOUNTER → 2025-03-05 | Outpatient (REF) | payer MEDICARE, MEDICAID ==
[2025-03-05 14:04] LABS: CALCIUM LEVEL 9.4 MG/DL (8.3-10.6); CARBON DIOXIDE LEVEL 36.0 MMOL/L (20-31); CHLORIDE LEVEL 82.0 MMOL/L (98-107); CREATININE FOR GFR 1.21 MG/DL (0.55-1.30); GLOMERULAR FILTRATION RATE 46.7 (>39); MAGNESIUM LEVEL 2.3 MG/DL (1.8-2.4); POTASSIUM SERUM 3.9 MMOL/L (3.5-5.1); SODIUM LEVEL 131.0 MMOL/L (136-145)
== END ==
PROVIDERS: ATTEND Nurse Practitioner Family
DX: E87.6 Hypokalemia (principal)

== ENCOUNTER → 2025-03-07 | Outpatient (REF) | payer MEDICARE, MEDICAID ==
[2025-03-07 13:55] LABS: BASO # 0.1 10^3/uL (0.0-0.2); BASO % 0.9 % (0.0-1.0); EOS # 0.4 10^3/uL (0.0-0.5); EOS % 3.3 % (0.0-3.0); LYMPH # 2.1 10^3/uL (1.5-5.0); LYMPH % 18.6 % (24.0-44.0); MONO # 1.0 10^3/uL (0.0-0.8); MONO % 9.0 % (2.0-8.0); NEUTROPHILS # 7.7 10^3/uL (1.5-8.5); NEUTROPHILS % 67.8 % (36.0-66.0); PLATELET COUNT, AUTOMATED 381 10^3/uL (150-450)
[2025-03-07 14:18] LABS: CALCIUM LEVEL 9.1 MG/DL (8.3-10.6); CARBON DIOXIDE LEVEL 40.0 MMOL/L (20-31); CHLORIDE LEVEL 87.0 MMOL/L (98-107); CREATININE FOR GFR 1.32 MG/DL (0.55-1.30); GLOMERULAR FILTRATION RATE 42.1 (>39); POTASSIUM SERUM 4.0 MMOL/L (3.5-5.1); SODIUM LEVEL 135.0 MMOL/L (136-145)
== END ==
PROVIDERS: ATTEND Nurse Practitioner Family
DX: D64.9 Anemia, unspecified (principal)

== ENCOUNTER → 2025-03-08 | Outpatient (REF) | payer MEDICARE, MEDICAID ==
[2025-03-08 12:09] LABS: PLATELET COUNT, AUTOMATED 392 10^3/uL (150-450)
[2025-03-08 12:56] LABS: CALCIUM LEVEL 9.2 MG/DL (8.3-10.6); CARBON DIOXIDE LEVEL 36.0 MMOL/L (20-31); CHLORIDE LEVEL 87.0 MMOL/L (98-107); CREATININE FOR GFR 1.41 MG/DL (0.55-1.30); GLOMERULAR FILTRATION RATE 38.9 (>39); MAGNESIUM LEVEL 2.4 MG/DL (1.8-2.4); POTASSIUM SERUM 2.8 MMOL/L (3.5-5.1); SODIUM LEVEL 137.0 MMOL/L (136-145)
== END ==
PROVIDERS: ATTEND Nurse Practitioner Family
DX: I50.9 Heart failure, unspecified (principal)

== ENCOUNTER → 2025-03-11 | Outpatient (REF) | payer MEDICARE, MEDICAID | PROVIDERS: ATTEND Nurse Practitioner Family | DX: E03.9 Hypothyroidism, unspecified (principal) ==

== ENCOUNTER → 2025-03-12 | Outpatient (REF) | payer MEDICARE, MEDICAID | PROVIDERS: ATTEND Nurse Practitioner Family | DX: J44.9 Chronic obstructive pulmonary disease, unspecified (principal); I50.9 Heart failure, unspecified ==

== ENCOUNTER → 2025-03-12 | Outpatient (REF) | payer MEDICARE, MEDICAID | PROVIDERS: ATTEND Nurse Practitioner Family | DX: J44.9 Chronic obstructive pulmonary disease, unspecified (principal); I50.9 Heart failure, unspecified ==

== ENCOUNTER → 2025-03-12 | Outpatient (REF) | payer MEDICARE, MEDICAID | PROVIDERS: ATTEND Nurse Practitioner Family | DX: J44.9 Chronic obstructive pulmonary disease, unspecified (principal); I50.9 Heart failure, unspecified ==

== ENCOUNTER → 2025-03-12 | Outpatient (REF) | payer MEDICARE, MEDICAID | PROVIDERS: ATTEND Nurse Practitioner Family | DX: J44.9 Chronic obstructive pulmonary disease, unspecified (principal); I50.9 Heart failure, unspecified ==